=== PATIENT | female | born 1945 | race Caucasian/White ===

== ENCOUNTER 2019-02-11 09:09 | Emergency (ER) | payer MEDICARE, OTHER ==
[2019-02-11 09:45] LABS: ABS Eosinophils 0.1 10^3/ul (0-0.6); ABS Lymphocytes 1.2 10^3/ul (1.0-4.8); ABS Monocytes 0.5 10^3/ul (0-0.8); ABS Neutrophils 2.7 10^3/ul (1.5-7.7); Eosinophil % 3.1 %; Hematocrit 40 % (35-47); Lymphocyte % 25.8 %; Mean Corpuscular HGB Conc 35 g/dL (31-36); Mean Corpuscular Hemoglobin 31 pg (27-31); Mean Corpuscular Volume 90 fL (80-97); Nucleated Red Blood Cells % 0.1; Platelet Count 241 10^3/uL (150-450); Red Blood Count 4.48 10^6 /uL (3.70-4.87); Red Cell Distribution Width 13 % (10-15); White Blood Count 4.5 10^3/uL (3.5-10.8)
[2019-02-11 09:53] LABS: INR 1.02 (0.82-1.09)
--- NOTE | 2019-02-11 09:54 | ED ---
Complex/Multi-Sys Presentation - HPI Summary HPI Summary: Patient is a 73 y/o F presenting to [facility] with complaints of what she describes as left scapula pain. She reports Sx onset at around 0825 today, 02/11/19. Pain is characterized as sharp and patient notes the pain, "Feels like a pinched nerve". Pain is exacerbated by deep breaths. No radiation of pain noted. Some cough is endorsed but leg pain, fever, chills, and diaphoresis are denied. No recent falls are noted. , who is in the room, was concerned for LA. Pain is not as sharp as it was initially and currently is rated 6/10. Patient notes that she was on ranitidine for GERD, but states that she stopped taking this medication recently as she had read it was a carcinogen. She is on Lisinopril, 10 mg, and Atrovastatin, prophylactically per patient, Levocetirizine for allergies, and vitamin E supplements. FMHx of aortic aneurysm in brother reported. Patient does not report any erythema of eyes, sore throat, SOB, abdominal pain, N/V, dysuria, hematuria, edema, rash, and dizziness. Home medications and allergies are reviewed. - History Of Current Complaint Chief Complaint: EDChestPainROMI Time Seen by Provider: 02/11/19 09:18 Hx Obtained From: Patient Onset/Duration: Lasting Hours, Still Present Timing: Constant, Hours Severity Currently: Moderate - 6/10 Location: Pain At: - left scapula pain Character: Sharp Aggravating Factor(s): deep breaths Alleviating Factor(s): nothing Associated Signs And Symptoms: Positive: Cough, Chest Pain - left scapula pain, Other - denies leg pain, fever, chills, and diaphoresis are denied; no recent falls; does not report any erythema of eyes, sore throat, SOB, abdominal pain, N /V, dysuria, hematuria, edema, rash, and dizziness. Negative: Dizziness, SOB, Edema, Nausea, Vomiting, Abdominal Pain, Fever - Allergies/Home Medications Allergies/Adverse Reactions: Allergies Allergy/AdvReac Type Severity Reaction Status Date / Time Penicillins Allergy Hives Verified 02/11/19 09:17 Home Medications: Home Medications Azelastine/Fluticasone RACHAEL(NF [Dymista(NF)] 1 spray BOTH NARES BID 02/11/19 [ History Confirmed 02/11/19] PMH/Surg Hx/FS Hx/Imm Hx Endocrine/Hematology History: Denies: Hx Diabetes Cardiovascular History: Reports: Hx Hypertension - ON MEDS Denies: Hx Pacemaker/ICD History: Denies: Hx Dialysis, Hx Renal Disease Sensory History: Denies: Hx Hearing Aid Psychiatric History: Denies: Hx Panic Disorder - Cancer History Cancer Type, 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 BREAST REDUCTION- ABDOMINOPLASTY ;. RT SHOULDER RCT REPAIR ;. D&C ; Infectious Disease History: No Infectious Disease History: Reports: Hx Shingles, Traveled Outside the [place] in Last 30 Days - Family History Known Family History: Positive: Other - brother has Hx of aortic aneurysm - Social History Alcohol Use: Occasionally Substance Use Type: Reports: None Substance Use Comment - Amount & Last Used: UNSURE, PT CODE MARTIN Smoking Status (MU): Never Smoked Tobacco Review of Systems Negative: Fever, Chills, Skin Diaphoresis Negative: Erythema Negative: Sore Throat Positive: Chest Pain - left scapula pain Positive: Cough. Negative: Shortness Of Breath Negative: Abdominal Pain, Vomiting, Nausea Negative: dysuria, hematuria Musculoskeletal: Other - negative - recent falls, leg pain Positive: Myalgia - left scapula pain . Negative: Edema Negative: Rash Neurological: Other - negative - dizziness All Other Systems Reviewed And Are Negative: Yes Physical Exam - Summary Physical Exam Summary: Constitutional: Well-developed, Well-nourished, Alert. (-) Distressed Skin: Warm, Dry HENT: Normocephalic; Atraumatic Eyes: Conjunctiva normal Neck: Musculoskeletal ROM normal neck. (-) JVD, (-) Stridor, (-) Tracheal deviation Cardio: Rhythm regular, rate normal, Heart sounds normal; Intact distal pulses; The pedal pulses are 2+ and symmetric. Radial pulses are 2+ and symmetric. (-) Murmur Pulmonary/Chest wall: Effort normal. (-) Respiratory distress, (-) Wheezes, (-) Rales Abd: Soft, (-) tenderness, (-) Distension, (-) Guarding, (-) Rebound Musculoskeletal: (-) Edema Lymph: (-) Cervical adenopathy Neuro: Alert, Oriented x3 Psych: Mood and affect Normal Triage Information Reviewed: Yes Vital Signs On Initial Exam: Initial Vitals Temp Pulse Resp BP Pulse Ox 97.4 F 67 18 158/78 99 02/11/19 09:14 02/11/19 09:14 02/11/19 09:14 02/11/19 09:14 02/11/19 09:14 Vital Signs Reviewed: Yes Diagnostics - Vital Signs Vital Signs Temp Pulse Resp BP Pulse Ox 02/11/19 09:21 18 02/11/19 09:14 97.4 F 67 18 158/78 99 - Laboratory Result Diagrams: 02/11/19 09:26 02/11/19 09:26 Lab Statement: Any lab studies that have been ordered have been reviewed, and results considered in the medical decision making process. - Radiology CXR Radiology Interpretation Completed By: Radiologist Summary of Radiographic Findings: IMPRESSION: HYPERINFLATION. NO ACTIVE CARDIOPULMONARY DISEASE. THIS REPORT WAS REVIEWED BY DR. SHARPE. - CT CHEST/ABD/PEL CTA CT Interpretation Completed By: Radiologist Summary of CT Findings: CHEST C TA IMPRESSION: #. Negative for aneurysm or dissection of the thoracic aorta. #. Negative for pulmonary embolism. #. No acute thoracic pathologic process evident. ABDOMEN/PELVIC CTA IMPRESSION: #. Negative for aneurysm or dissection of the abdominal aorta. #. No acute abdominal pelvic pathologic process evident. THIS REPORT WAS REVIEWED BY DR. SHARPE. - EKG 0911 Cardiac Rate: NL - rate of 70 BPM EKG Rhythm: Sinus Rhythm Summary of EKG Findings: NSR with rate of 70 BPM, no STEMI. ED physician has reviewed and interpreted this EKG. Re-Evaluation - Re-Evaluation First Eval Re-Evaluation Time: 11:26 Change: Unchanged Comment: Patient reports discomfort is still present. Second Eval Re-Evaluation Time: 13:10 Comment: Patient's pain is noted to be reproducible with shoulder flexion. Results of labs and tests were discussed. She is discharged to home and will follow up with PCP within three days. Complex Multi-Symp Course/Dx Course Of Treatment: Patient is a 73 y/o F presenting to [facility] with complaints of what she describes as left scapula pain. She reports Sx onset at around 0825 today, 02/11/19. Pain is characterized as sharp and patient notes the pain, "Feels like a pinched nerve". Pain is exacerbated by deep breaths. No radiation of pain noted. Some cough is endorsed but leg pain, fever, chills, and diaphoresis are denied. No recent falls are noted. , who is in the room, was concerned for LA. Pain is not as sharp as it was initially and currently is rated 6/10. FMHx of aortic aneurysm in brother reported. Physical exam is unremarkable. EKG showed NSR with rate of 70 BPM, no STEMI. CXR IMPRESSION: HYPERINFLATION. NO ACTIVE CARDIOPULMONARY DISEASE. CHEST CTA IMPRESSION: #. Negative for aneurysm or dissection of the thoracic aorta. #. Negative for pulmonary embolism. #. No acute thoracic pathologic process evident. ABDOMEN/ PELVIC CTA IMPRESSION: #. Negative for aneurysm or dissection of the abdominal aorta. #. No acute abdominal pelvic pathologic process evident. Bloodwork was obtained. Abnormal values include BUN/creatinine ratio of 21.6, glucose 119, total protein 6.2, globulin 1.9. First and second trop were negative. During ED course, patient received toradol 30 mg IV. Patient's pain is noted to be reproducible with shoulder flexion. Results of labs and tests were discussed. She is discharged to home and will follow up with PCP within three days. Patient was prescribed lidoderm patch. - Diagnoses Provider Diagnoses: Pain of left scapula Discharge ED - Sign-Out/Discharge Documenting (check all that apply): Patient Departure - discharge Patient Received Moderate/Deep Sedation with Procedure: No - Discharge Plan Condition: Stable Disposition: HOME Prescriptions: Lidocaine PATCH 5%* [Lidoderm 5% Patch*] 1 patch TRANSDERM DAILY #10 patch Patient Education Materials: Musculoskeletal Pain (ED) Referrals: Adrianna Thakur MD [Primary Care Provider] - 3 Days Additional Instructions: PLEASE RETURN TO ED FOR ANY NEW OR WORSENING SYMPTOMS. PLEASE FOLLOW UP WITH YOUR PRIMARY CARE PHYSICIAN IN 2-3 DAYS. - Attestation Statements Document Initiated by Scribe: Yes Documenting Scribe: SHYLA CRESPO Provider For Whom Scribe is Documenting (Include Credential): LITA SHARPE MD Scribe Attestation: SHYLA Sanon, scribed for LITA SHARPE MD on 02/11/19 at 1402. Status of Scribe Document: Ready
[2019-02-11 10:04] LABS: Albumin 4.3 g/dL (3.2-5.2); Albumin/Globulin Ratio 2.3 (1-3); BUN/Creatinine Ratio 21.6 (8-20); Calcium 9.7 mg/dL (8.6-10.3); EGFR African American 93.1 (>60); EGFR Non-African American 76.9 (>60); Globulin 1.9 g/dL (2-4); Potassium 3.9 mmol/L (3.5-5.0); Total Bilirubin 0.7 mg/dL (0.2-1.0); Total Protein 6.2 g/dL (6.4-8.9)
[2019-02-11] MEDS ORDERED: Iohexol 350* (CONTRAST) 500 ML MDV IV ONE (10:23)
--- OUTSIDE RECORDS SUMMARY | 2019-02-11 10:39 | XMS REPORT | Continuity of Care Document ---
:1945 External Reference #:[id number] Author Name Mimi Stone Care Team Providers Name Role Phone Adrianna Thakur MD Primary Care Physician Unavailable Payers Date Identification Numbers Payment Provider Subscriber Policy Number: [id number] Medicare Amanda Rapp PayID: [id number] [address] [facility] [place] [address] Policy Number: [id number] [facility] Amanda Rapp PayID: [id number] [address] [place] [address] Effective: 2010 Policy Number: [id number] Medicare Amanda Rapp Expires: 2017 PayID: [id number] [address] [facility] [place] [address] Effective: 2016 Policy Number: [id number] [facility] Rogelio Rapp Expires: 2018 PayID: [id number] [address] [address] [place] [address] Problems Active Problems Provider Date 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 Onset: 09/05/2018 Pain in forearm Rolsyn Acosta M.D. Onset: 09/05/2018 Family History Date Family Member(s) Observation Comments Father Cancer Father Stroke Social History Type Date Description Comments Sex Unknown Marital Status Lives With Spouse Occupation Sales Hand Dominance Right-handed ETOH Use Occasionally consumes alcohol Recreational Drug Use Denies Drug Use Tobacco Use Start: Unknown Patient has never smoked Smoking Status Reviewed: 12/20/18 Patient has never smoked Exercise Type/Frequency Exercises regularly Allergies, Adverse Reactions, Alerts Active Allergies Reaction Severity Comments Date Penicillins unknown childhood 07/03/2013 Medications Active Medications SIG Qnty Indications Ordering Date Provider Levocetirizine one by mouth 90tabs Unknown Dihydrochloride every night 5mg Tablets Ranitidine HCL 1 po bid 180caps Unknown 150mg Capsules Lisinopril 1 by mouth every 90tabs Unknown 10mg Tablets day Vagifem by way of vagina Unknown 10mcg Tablets twice a week (with applicator) Atorvastatin Calcium 1 by mouth every Unknown 10mg day Tablets Vitamin D3 Super 1 by mouth every Unknown Strength day 2000Unit Tablets Dymista 1 spray each Unknown 137-50mcg/Act nostril bid Suspension Gabapentin take three 270caps Chris S. 100mg Capsules capsules by Yulisa Viveros mouth at bedtime Proctozone-HC as directed Adrianna Thakur 2.5% Cream MD Vesta History Medications Meloxicam 1 by mouth every 14tabs S46.011A Roslyn Acosta, 09/05/2018 - 15mg Tablets day M.D. 09/20/2018 Cyclobenzaprine HCL 1 tablet by 30tabs M70.61 Roslyn Acosta 12/11/2017 - 10mg mouth q8 hours M.D. 03/12/2018 Tablets as needed muscle spasms Meloxicam 1 by mouth every 30tabs M70.61 Roslyn Acosta 12/11/2017 - 15mg Tablets day M.D. 03/12/2018 Diclofenac Sodium take 4gm 200gm M70.61 Dayron Reynoso 11/07/2017 - 1% Gel topically to MD Shira 03/12/2018 affected area 4 times per day as needed Naproxen 1 by mouth twice 60tabs M70.61 Dayron Reynoso 09/26/2017 - 500mg Tablets a day as needed MD Shira 12/11/2017 pain Celebrex 1 tab by mouth 60caps M22.2x2 Dayron Reynoso 08/15/2016 - 100mg Capsules twice a day as MD Shira 10/07/2017 needed Percocet take 1-2 tabs po 45tabs Boni Hedrick, 09/29/2011 - 5-325mg Tablets q4-6 hours prn M.DMallika 01/13/2014 pain Fluticasone Propionate 1 spray each 16gm Unknown - nostril daily 08/14/2015 50mcg/Act Suspension Valacyclovir HCL 1 tablets by Unknown - 500mg mouth three 08/14/2015 Tablets times a day for 7 days Aspirin Adult Low Dose 1 by mouth every Unknown - day 10/07/[address] Ranitidine HCL Take One Tablet Unknown - 150mg By Mouth Twice A 03/07/2017 Tablets Day Glucosamine 1 by mouth every Unknown - Chondroitin 1500 day 10/07/2017 Complex 1500Com Capsules Ibuprofen as needed Unknown - 200mg Tablets 11/20/2017 Medications Administered in Office Medication SIG Qnty Indications Ordering Provider Date Celestone 3 mg and 3mg Roslyn Acosta M.D. 09/05/2018 Injection Depomedrol 40MG Roslyn Acosta M.D. 12/11/2017 Injection Depomedrol 40MG Dayron Silva MD 08/10/2017 Injection Depomedrol 40MG Dayron Silva MD 09/15/2016 Injection Depomedrol 80MG Boni Hedrick M.D. 05/23/2011 Injection Vital Signs Date Vital Result Comment 12/20/2018 10:06am Heart Rate 72 /min Respiratory Rate 16 /min Body Temperature 97.6 F 11/27/2018 10:42am Heart Rate 72 /min Respiratory Rate 16 /min Body Temperature 97.9 F 11/21/2018 8:52am Height 64 inches 5'4" Weight 152.00 lb Heart Rate 72 /min BP Systolic Sitting 130 mmHg BP Diastolic Sitting 80 mmHg Respiratory Rate 16 /min Body Temperature 97.1 F BMI (Body Mass Index) 26.1 kg/m2 09/21/2018 8:18am Height 64 inches 5'4" Weight 160.00 lb BP Systolic 126 mmHg BP Diastolic 78 mmHg Body Temperature 97.6 F Pain Level 5 BMI (Body Mass Index) 27.5 kg/m2 09/05/2018 9:47am Height 64 inches 5'4" Weight 164.00 lb Heart Rate 80 /min BP Systolic 114 mmHg BP Diastolic 72 mmHg Respiratory Rate 18 /min Body Temperature 98.4 F Pain Level 7 BMI (Body Mass Index) 28.1 kg/m2 03/13/2018 1:48pm Height 64 inches 5'4" Weight 152.00 lb Heart Rate 80 /min BP Systolic Sitting 126 mmHg BP Diastolic Sitting 78 mmHg Respiratory Rate 16 /min BMI (Body Mass Index) 26.1 kg/m2 01/01/2018 8:05am Height 64 inches 5'4" Weight 150.00 lb Heart Rate 78 /min BP Systolic 118 mmHg BP Diastolic 70 mmHg Respiratory Rate 12 /min Pain Level 7 BMI (Body Mass Index) 25.7 kg/m2 12/11/2017 2:20pm Height 64 inches 5'4" Weight 150.00 lb Heart Rate 84 /min BP Systolic 126 mmHg BP Diastolic 76 mmHg BMI (Body Mass Index) 25.7 kg/m2 11/29/2017 3:29pm Height 64 inches 5'4" Weight 150.00 lb BP Systolic Sitting 130 mmHg BP Diastolic Sitting 88 mmHg Pain Level 6 BMI (Body Mass Index) 25.7 kg/m2 11/20/2017 1:13pm Height 64 inches 5'4" Weight 150.00 lb BP Systolic Sitting 140 mmHg BP Diastolic Sitting 80 mmHg Pain Level 4 BMI (Body Mass Index) 25.7 kg/m2 11/07/2017 10:04am Height 64 inches 5'4" Weight 150.00 lb Heart Rate 68 /min BP Systolic Sitting 136 mmHg BP Diastolic Sitting 86 mmHg Respiratory Rate 16 /min Pain Level 0 BMI (Body Mass Index) 25.7 kg/m2 09/26/2017 1:42pm Height 64 inches 5'4" Weight 150.00 lb Heart Rate 80 /min BP Systolic 150 mmHg BP Diastolic 80 mmHg Pain Level 0 BMI (Body Mass Index) 25.7 kg/m2 09/21/2017 8:30am Height 64 inches 5'4" Weight 150.00 lb Heart Rate 78 /min Respiratory Rate 15 /min Pain Level 10 BMI (Body Mass Index) 25.7 kg/m2 08/10/2017 1:54pm Height 64 inches 5'4" Heart Rate 81 /min BP Systolic 122 mmHg BP Diastolic 68 mmHg Respiratory Rate 16 /min Body Temperature 98.1 F Pain Level 7 03/08/2017 10:02am Height 64 inches 5'4" Weight 150.00 lb Heart Rate 77 /min BP Systolic Sitting 126 mmHg BP Diastolic Sitting 82 mmHg Respiratory Rate 16 /min BMI (Body Mass Index) 25.7 kg/m2 10/27/2016 9:24am Height 64 inches 5'4" Weight 150.00 lb Respiratory Rate 16 /min Body Temperature 97.7 F Pain Level 1 BMI (Body Mass Index) 25.7 kg/m2 09/15/2016 9:11am Height 64 inches 5'4" Weight 150.00 lb Heart Rate 60 /min BP Systolic 147 mmHg BP Diastolic 78 mmHg Respiratory Rate 17 /min Pain Level 4 BMI (Body Mass Index) 25.7 kg/m2 08/15/2016 1:17pm Height 64 inches 5'4" Weight 150.00 lb Heart Rate 76 /min BP Systolic 119 mmHg BP Diastolic 72 mmHg Respiratory Rate 16 /min Body Temperature 98.5 F Pain Level 7 BMI (Body Mass Index) 25.7 kg/m2 05/02/2016 9:59am Height 64 inches 5'4" Weight 152.00 lb Heart Rate 80 /min BP Systolic Sitting 134 mmHg BP Diastolic Sitting 76 mmHg BMI (Body Mass Index) 26.1 kg/m2 08/25/2015 11:17am Height 64 inches 5'4" Weight 164.00 lb Heart Rate 80 /min BP Systolic Sitting 130 mmHg BP Diastolic Sitting 94 mmHg Respiratory Rate 16 /min BMI (Body Mass Index) 28.1 kg/m2 05/12/2015 1:44pm Height 64 inches 5'4" Weight 164.00 lb Heart Rate 64 /min BP Systolic Sitting 128 mmHg BP Diastolic Sitting 90 mmHg Respiratory Rate 14 /min BMI (Body Mass Index) 28.1 kg/m2 02/18/2015 11:54am Height 64 inches 5'4" Weight 160.00 lb Heart Rate 68 /min BP Systolic Sitting 130 mmHg BP Diastolic Sitting 82 mmHg Respiratory Rate 14 /min BMI (Body Mass Index) 27.5 kg/m2 08/13/2014 9:58am Height 64 inches 5'4" Heart Rate 72 /min BP Systolic Sitting 130 mmHg BP Diastolic Sitting 84 mmHg Respiratory Rate 16 /min 02/12/2014 10:08am Height 64 inches 5'4" Weight 158.00 lb Heart Rate 80 /min BP Systolic Sitting 132 mmHg BP Diastolic Sitting 78 mmHg Respiratory Rate 20 /min BMI (Body Mass Index) 27.1 kg/m2 07/03/2013 2:52pm Heart Rate 70 /min BP Systolic Sitting 160 mmHg BP Diastolic Sitting 90 mmHg Respiratory Rate 16 /min Results Test Date Facility Test Result H/L Range Note Creatinine 07/03/2013 [facility] Creatinine 0.67 mg/dL 0.51- 0.95 [address] [place] [address] [phone] Egfr Non- 87.8 >60 Egfr 112.9 >60 1 1 Because ethnic data is not always readily available, this report includes an eGFR for both -Americans and non- Americans. The National Kidney Disease Education Program (NKDEP) does not endorse the use of the MDRD equation for patients that are not between the ages of 18 and 70, are , have extremes of body size, muscle mass, or nutritional status, or are non- or non-. According to the National Kidney Foundation, irrespective of diagnosis, the stage of the disease is based on the level of kidney function: Stage Description GFR(mL/min/1.73 m(2)) 1 Kidney damage with normal or decreased GFR 90 2 Kidney damage with mild decrease in GFR 60-89 3 Moderate decrease in GFR 30-59 4 Severe decrease in GFR 15-29 5 Kidney failure <15 (or dialysis) Procedures Date Code Description Status 11/21/2018 53664 Anoscopy Completed 09/05/2018 Injection Single Tendon Origin/Insertion Completed 12/11/2017 Injection Single Tendon Origin/Insertion Completed 08/10/201763790 Inject/Drain Joint/Bursa Major W/O US Completed 09/15/2016 Inject/Drain Joint/Bursa Major W/O US Completed 09/23/2011 40058 Arthroscopy Shoulder,W/Rotator Cuff Repair Completed 09/23/2011 18280 Arthroscopy Shoulder,W/Rotator Cuff Repair Completed 09/23/2011 61074 Arthroscopy,Shoulder Decompression Of Subacromial Space Completed W/Acromio 09/23/2011 79863 Arthroscopy,Shoulder Decompression Of Subacromial Space Completed W/Acromio 05/23/2011 63225 Inject/Drain Joint/Bursa Major W/O US Completed 03/21/2011 75792 Rad Shoulder Comp, Min. 2 Views Completed Encounters Type Date Location Provider Dx Diagnosis Office Visit 11/27/2018 [facility] Leo Shepherd K64.8 Other hemorrhoids 10:15a [facility] Office Visit 11/21/2018 [facility] Leo Shepherd K62.5 Hemorrhage of anus 8:30a [facility] MD and rectum K64.8 Other hemorrhoids Office Visit 09/21/2018 8:15a Orthopedic Roslyn M77.11 Lateral [facility] Yulisa Acosta epicondylitis, right C.M.A. elbow M79.631 Pain in right forearm S46.011A Strain of musc/tend the rotator cuff of right shoulder, init Office Visit 09/05/2018 9:30a Orthopedic Roslyn M77.11 Lateral [facility] Yulisa Acosta epicondylitis, right C.M.A. elbow S46.011A Strain of musc/tend the rotator cuff of right shoulder, init S46.101A Unsp injury of musc/fasc/tend long hd bicep, right arm, init M25.511 Pain in right shoulder M79.631 Pain in right forearm Office Visit 03/13/2018 1:45p Maximiliano Singletary G51.1 [facility] Yulisa Viveros ganglionitis [facility] Office Visit 01/01/2018 8:00a Orthopedic Roslyn Acosta M54.16 Radiculopathy, Services Nora Márquez lumbar region C.M.A. M76.01 Gluteal tendinitis, right hip M25.551 Pain in right hip M70.61 Trochanteric bursitis, right hip M54.5 Low back pain Office Visit 12/11/2017 2:15p Orthopedic Roslyn M54.16 Radiculopathy, Services Of Yulisa Acosta lumbar region C.M.A. 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 M25.551 Pain in right hip M54.16 Radiculopathy, lumbar region Office Visit 09/26/2017 1:30p Orthopedic Dayron Reynoso M70.61 Trochanteric Services Of MD Shira bursitis, right C.M.A. hip M25.551 Pain in right hip M76.01 Gluteal tendinitis, right hip Office Visit 09/21/2017 8:15a Orthopedic Dayron Reynoso M70.61 Trochanteric Services Of MD Shira bursitis, right C.M.A. 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 Office 10/27/2016 Orthopedic Services Dayron Reynoso M22.2x2 Patellofemoral Visit 9:15a Of Angelita Silva MD disorders, left knee M17.12 Unilateral primary osteoarthritis, left knee Office Visit 08/15/2016 Orthopedic Dayron Reynoso M22.2x2 Patellofemoral 1:00p Services Of MD Shira disorders, left C.M.A. knee M17.12 Unilateral primary osteoarthritis, left knee Office Visit 05/02/2016 Neurohospitalist Chris Singletary M79.2 Neuralgia and 9:45a Clinic Yulisa Viveros neuritis, unspecified Office Visit 08/25/2015 Neurohospitalist Chris Singletary M79.2 Neuralgia and 10:15a Clinic Yulisa Viveros neuritis, unspecified Office Visit 05/12/2015 [place] David Singletary M79.2 Neuralgia and 1:45p Services Of Ana Viveros M.D. 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 of facial nerve Office Visit 08/13/2014 [place] David Singletary 351.8 Nerve Disorder 9:45a Services Of Ana Viveros M.D. Facial Other Office Visit 02/12/2014 [place] David Singletary 351.8 Nerve Disorder 9:45a Services Of [facility] Viveros M.D. Facial Other Office Visit 12/11/2013 [place] David Carly 782.0 Skin Sensation 10:02a Services Of [facility] Sam M.D. Disturbance 401.9 Hypertension Unspec 300.00 Anxiety State Unspec 780.52 Insomnia Unspecified Office Visit 08/14/2013 3:30p [place] David Singletary 351.8 Nerve Disorder [facility] Viveros M.D. Facial Other Office Visit 07/03/2013 3:00p [place] David Singletary 351.8 Nerve Disorder Services [facility] Viveros M.D. Facial Other Office Visit 08/02/2012 9:00a Emil Hedrick, 840.4 Sprains & Services Of M.D. Strains Rotator C.M.A. Cuff (Capsule) Office Visit 05/03/2012 9:00a Emil Hedrick, 840.4 Sprains & Services Of M.D. Strains Rotator C.M.A. Cuff (Capsule) Office Visit 02/02/2012 9:00a Emil Hedrick, 840.4 Sprains & Services Of M.D. Strains Rotator C.M.A. Cuff (Capsule) Office Visit 09/01/2011 1:15p Emil Hedrick, 840.7 [place] [facility] Services Of M.D. Labrum Lesions C.M.A. Office Visit 07/04/2011 1:15p Emil Hedrick, 726.10 Bursae & Tendon Services Of M.D. Disorders C.M.A. Shoulder Region Unspec Office Visit 05/23/2011 4:15p Emil Hedrick 726.10 Bursae & Tendon Services Of M.D. Disorders C.M.A. Shoulder Region Unspec 726.2 Shoulder Region Affections Other Not Elsewhere Class Office Visit 04/12/2011 1:30p Emil Hedrick 726.10 Bursae & Tendon Services Of M.D. Disorders C.M.A. Shoulder Region Unspec Office Visit 04/04/2011 11:30a Emil Hedrick 726.2 Shoulder Region Services Of M.D. Affections Other C.M.A. Not Elsewhere Class Office Visit 03/21/2011 8:00a Emil Hedrick 726.2 Shoulder Region Services Of M.D. Affections Other C.M.A. Not Elsewhere Class Plan of Treatment Future Appointment(s):02/13/2019 10:00 am - Leo Leos MD at [facility]03/13/2019 1:30 pm - Chris Viveros M.D. at [place] [facility]11/27/2018 - Leo Leos MDK64.8 Other hemorrhoidsComments:healing, fu 1 month
[2019-02-11] MEDS ORDERED: Ketorolac INJ* 30 MG/ML 1 ML VIAL IV PUSH ONE (11:21)
[2019-02-11 13:28] VITALS: BP 128/78
== END 2019-02-11 13:28 | disposition home or self-care (01) ==
LOC: ED 09:09
DX: M25.512 Pain in left shoulder (principal); R05 Cough; R07.89 Other chest pain; I10 Essential (primary) hypertension; Z88.0 Allergy status to penicillin
CPT/HCPCS: 36415; 71045; 71275; 74174; 80053; 84484; 85025; 85610; 93005; 96374; 99282; J1885; Q9967